=== PATIENT | male | born 1975 | race Caucasian/White ===

== ENCOUNTER 2023-01-01 07:39 | Emergency (ER) | payer OTHER ==
[~2023-01-01] VITALS: Ht 182.9 cm; Wt 102.1 kg
[2023-01-01 07:40] VITALS: BP_SYST 108; PULSE 68; RESP 18; TEMP 98.2; O2SAT 96
[2023-01-01] MEDS ORDERED: ACETAMINOPHEN 325 MG TABLET PO ONE (08:15)
[2023-01-01 09:00] VITALS: TEMP 98.2
[2023-01-01] MEDS ORDERED: KETOROLAC TROMETHAMINE 15 MG VIAL IM ONE (09:30)
[2023-01-01] MEDS ORDERED: CYCL10TA24 PO (09:35)
[2023-01-01 10:22] VITALS: BP_SYST 108; PULSE 76; RESP 18; O2SAT 99
== END 2023-01-01 10:22 | disposition home or self-care (01) ==
LOC: SED 07:39
DX: S16.1XXA Strain of muscle, fascia and tendon at neck level, initial encounter (principal); S46.812A Strain of other muscles, fascia and tendons at shoulder and upper arm level, left arm, initial encounter; Z79.899 Other long term (current) drug therapy; X50.1XXA Overexertion from prolonged static or awkward postures, initial encounter; Y93.89 Activity, other specified; Y92.89 Other specified places as the place of occurrence of the external cause; Y99.8 Other external cause status
CPT/HCPCS: 99284; 71046; 72050; 73030; 96372; J1885

== ENCOUNTER 2023-02-09 10:32 | Emergency (ER) | payer OTHER ==
[~2023-02-09] VITALS: Ht 182.9 cm; Wt 102.1 kg
[~2023-02-09 10:32] MED LIST: CYCL10TA24 PO
[2023-02-09 10:50] VITALS: BP_SYST 112; PULSE 80; RESP 14; TEMP 98; O2SAT 96
[2023-02-09 10:56] LABS: BASOPHILS # (AUTO) 0.1 K/uL (0.0-0.2); BASOPHILS % (AUTO) 0.6 % (0.0-2.0); EOSINOPHILS # (AUTO) 0.1 K/uL (0.0-0.4); EOSINOPHILS % (AUTO) 1.7 % (0.0-4.0); LYMPHOCYTES % (AUTO) 25.6 % (20.5-51.5); MEAN CORPUSCULAR HEMOGLOBIN 29 pg (27-31); MEAN CORPUSCULAR HGB CONC 33 % (32-36); MEAN CORPUSCULAR VOLUME 87 fL (79.0-98.0); MONOCYTES # (AUTO) 0.5 K/uL (0.0-1.0); NEUTROPHILS # (AUTO) 5.3 K/uL (1.8-7.7); NEUTROPHILS % (AUTO) 66.1 % (40.0-70.0); PLATELET COUNT (AUTO) 317 K/uL (130-430); RED BLOOD CELL COUNT(AUTO) 5.52 MIL/uL (4.2-6.2)
[2023-02-09 11:19] LABS: ANION GAP 10 (5-15); CALCIUM 9.5 mg/dL (8.4-11.0); CARBON DIOXIDE 28 mmol/L (23-29); CHLORIDE 101 mmol/L (98-107); CREATININE 0.76 mg/dL (0.55-1.30); GFR AFRICAN AMERICAN 142 mL/min (>90); GLUCOSE 109 mg/dL (74-106); POTASSIUM 3.9 mmol/L (3.5-5.1); SODIUM SERUM 139 mmol/L (136-145); UREA NITROGEN, BLOOD 10 mg/dL (8-21)
[2023-02-09 11:22] LABS: GFR NON AFRICAN-AMERICAN 117 mL/min (>90)
[2023-02-09 11:25] LABS: ALANINE AMINOTRANSFERASE 38 U/L (12-78); ALBUMIN 3.9 g/dL (3.4-4.8); ASPARTATE AMINOTRANSFERASE 17 U/L (10-37); TOTAL BILIRUBIN 0.7 mg/dL (0.0-1.0); TOTAL PROTEIN, SERUM 7.5 g/dL (6.4-8.3)
[2023-02-09 11:47] VITALS: BP_SYST 100; PULSE 70; RESP 14; TEMP 98.4; O2SAT 96
== END 2023-02-09 11:50 | disposition home or self-care (01) ==
LOC: SED 10:32
DX: R07.89 Other chest pain (principal); Z79.899 Other long term (current) drug therapy
CPT/HCPCS: 36415; 71045; 80053; 84484; 85025; 93005; 99285

== ENCOUNTER 2023-05-14 07:45 | Emergency (ER) | payer OTHER ==
[~2023-05-14] VITALS: Ht 182.9 cm; Wt 104.3 kg
[2023-05-14 08:00] VITALS: BP_SYST 108; PULSE 89; RESP 16; TEMP 97.5; O2SAT 98
[2023-05-14 08:30] LABS: INFLUENZA TYPE A Negative (NEGATIVE); INFLUENZA TYPE B NEGATIVE (NEGATIVE)
[2023-05-14] MEDS ORDERED: NIRM1TAB PO (08:37)
[2023-05-14 08:46] VITALS: BP_SYST 108; PULSE 89; RESP 16; TEMP 97.5; O2SAT 98
== END 2023-05-14 08:45 | disposition home or self-care (01) ==
LOC: SED 07:45
DX: U07.1 COVID-19 (principal); R05.9 Cough, unspecified; R07.9 Chest pain, unspecified; M79.10 Myalgia, unspecified site; Z79.899 Other long term (current) drug therapy
CPT/HCPCS: 36415; 71045; 99284